=== PATIENT | female | born 1980 | race African-American/Black ===

== ENCOUNTER 2023-01-29 10:54 | Outpatient (AMB) | payer OTHER, SELFPAY ==
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
== END 2023-01-29 11:35 | disposition home or self-care (01) ==
PROVIDERS: Referring Provider Student in an Organized Health Care Education/Training Program; Visit Provider Neurological Surgery
DX: M54.50 Low back pain, unspecified (principal)
CPT/HCPCS: 99204

== ENCOUNTER → 2023-01-29 10:54 | Outpatient (BNVA) | payer OTHER, SELFPAY | PROVIDERS: Visit Provider Neurological Surgery | DX: M54.50 Low back pain, unspecified (principal) | CPT/HCPCS: 99202 ==